=== PATIENT | female | born 1955 | race Caucasian/White ===

== ENCOUNTER 2019-10-01 20:32 | Inpatient (IN) | payer OTHER, MEDICAID ==
[~2019-10-01] VITALS: Ht 162.6 cm; Wt 90.2 kg
[~2019-10-01 20:32] MED LIST: CEPH250C2; FOLI1TAB6; FURO40TA4; GABA100C9; LISI-275; LORA-154; METO25TA5; PANTOPRAZOLE; SULF-169
[2019-10-01] MEDS ORDERED: dilTIAZem 25 MG/5 ML VIAL IV ONE ×2 (20:41→21:15)
[2019-10-01] MEDS ORDERED: SODIUM CHLORIDE 0.9% 1,000 ML IV ONE (21:15)
[2019-10-01] MEDS ORDERED: AMIODARONE HCL 150 MG in D5W 5% 100 ML IV ONE (21:30)
[2019-10-01 21:44] LABS: Hematocrit 50.4 % (36.0-46.0); Mean Corpuscular Hemoglobin 29.4 pg (28.0-32.0); Mean Corpuscular Hgb Conc. 33.8 g/dL (32.0-36.0); Platelet Count (auto) 153 10^3/uL (140-450); Red Blood Cells 5.79 10^6/uL (4.0-5.20); Red Cell Distribution Width 14.7 % (11.8-14.3); White Blood Cell 26.2 10^3/uL (4.4-10.8)
[2019-10-01 21:47] LABS: Albumin 2.8 g/dL (3.4-5.0); Calcium 8.9 mg/dL (8.5-10.1); Magnesium 2.1 mg/dL (1.6-2.6); Potassium 3.9 mmol/L (3.5-5.1)
[2019-10-01 21:48] LABS: Band Neutrophils % (manual) 0; Basophils % (manual) 0 (0.0-2.0); Blast Cells 0; Eosinophils % (manual) 0 (0-7); Metamyelocytes % 0; Myelocytes % 0; Promyelocytes % 0; Reactive Lymphocytes 0
[2019-10-01 21:49] LABS: BUN/Creatinine Ratio 16.2
[2019-10-01 21:54] LABS: Bilirubin, Total 5.1 mg/dL (0.2-1.0); Total Protein 7.2 g/dL (6.4-8.2)
[2019-10-01] MEDS ORDERED: DIGOXIN (250MCG/ML) 2 ML AMPULE ONE (22:26)
[2019-10-01] MEDS ORDERED: HEPARIN DRIP/D5W 100UNITS/ML 250 ML IV SCH (22:27)
[2019-10-01] MEDS ORDERED: ATORVASTATIN 20 MG TAB PO ONE (22:30)
[2019-10-01] MEDS ORDERED: NITROGLYCERIN 2% OINT 1GM PKG TD ONE (22:30)
[2019-10-01] MEDS ORDERED: METOPROLOL TARTRATE 1MG/1ML-5ML VIAL IV ONE (22:30)
[2019-10-01] MEDS ORDERED: HEPARIN SODIUM (PORCINE) 5000 UNITS/ML 1ML VIAL IV ONE (22:30)
[2019-10-01] MEDS ORDERED: DIGOXIN (250MCG/ML) 2 ML AMPULE IV ONE (22:30)
[2019-10-01 22:45] LABS: Lactic Acid w/Reflex 7.3 mmol/L (0.4-2.0)
[2019-10-01 22:51] LABS: Lymphocytes % (manual) 6 (10.0-50.0); Monocytes % (manual) 8 (0-12)
[2019-10-01 23:04] LABS: INR 1.72 (0.9-1.15); Partial Thromboplastin Time 28.7 sec (23.64-32.05)
[2019-10-02] MEDS ORDERED: VANCOMYCIN PER PHARMACY 0 MG IV SCH (00:45)
[2019-10-02] MEDS ORDERED: AMIODARONE HCL 75 MG in D5W 5% 100 ML IV ONE (00:45)
[2019-10-02] MEDS ORDERED: SODIUM CHLORIDE 0.9% 500 ML IV ONE (00:45)
[2019-10-02] MEDS ORDERED: MORPHINE SULF INJ 2 MG/ML SYRINGE 1ML IV PRN (00:45)
[2019-10-02] MEDS ORDERED: NITROGLYCERIN 0.4 MG SL TAB SL PRN (00:45)
[2019-10-02] MEDS ORDERED: ONDANSETRON HCL 4 MG/2 ML VIAL IV PRN (00:45)
[2019-10-02] MEDS ORDERED: dilTIAZem 25 MG/5 ML VIAL IV ONE (00:45)
[2019-10-02] MEDS ORDERED: AMIODARONE 450mg/250ml AE 250 ML IV SCH (00:49)
[2019-10-02] MEDS ORDERED: AMIODARONE HCL (50 MG/ ML) 3 ML VIAL IV ONE (01:31)
[2019-10-02 01:35] LABS: Urine Bacteria FEW /hpf (None Seen); Urine Blood 2+ /uL (Negative); Urine Mucus FEW (None Seen); Urine Specific Gravity 1.028 (1.001-1.035); Urine WBC 1 /hpf (0 - 5)
[2019-10-02 01:56] LABS: Alcohol, Urine < 3.0 mg/dL (0-10); Amphetamine Screen, Urine NEGATIVE (NEGATIVE); Barbiturate Scree,Urine NEGATIVE (NEGATIVE); Benzodiazephine Screen, Urine NEGATIVE (NEGATIVE); Cannabinoid Screen, Urine NEGATIVE (NEGATIVE); Cocaine Screen, Urine NEGATIVE (NEGATIVE); Opiate Scree,Urine NEGATIVE (NEGATIVE); Phencyclidine Screen, Urine NEGATIVE (NEGATIVE)
[2019-10-02] MEDS ORDERED: VANCOMYCIN 1GM/250ML 250 ML IV ONE (02:00)
[2019-10-02] MEDS: SODIUM CHLORIDE 0.9% 1,000 ML IV SCH ×2 (03:40→14:05)
[2019-10-02] MEDS: PIPERACILLIN-TAZOB 3.375GM 100 ML IV SCH ×4 (04:50→18:17)
[2019-10-02] MEDS ORDERED: LACTULOSE 20Gm/30ML SOLN NG SCH (06:00)
[2019-10-02] MEDS ORDERED: LACTULOSE 20Gm/30ML SOLN ONE (07:07)
[2019-10-02] MEDS: LACTULOSE 20Gm/30ML SOLN PR SCH ×3 (07:12→23:35)
[2019-10-02] MEDS: AMIODARONE 450mg/250ml AE 250 ML IV SCH ×2 (07:34→23:35)
[2019-10-02] MEDS: ASPirin 81 mg TAB NG SCH (10:00)
[2019-10-02] MEDS: PANTOPRAZOLE 40 MG/10 ML VIAL INJ IV SCH (10:35)
[2019-10-02] MEDS ORDERED: dilTIAZem 125mg/125ml BAG KIT 125 ML IV SCH (12:15)
[2019-10-02] MEDS ORDERED: METOPROLOL SUCCINATE XL 50 MG TAB PO ONE (12:30)
[2019-10-02] MEDS ORDERED: ENOXAPARIN SOD 100 MG/1 ML SYRINGE SC ONE (13:15)
[2019-10-02 16:21] VITALS: BP 136/88
--- NOTE | 2019-10-02 16:30 | NUR ---
IV REMOVED Right wrist IV removed with clean technique. Site reddened and swollen. Patient tolerated well.
--- NOTE | 2019-10-02 18:58 | NUR ---
COMPLETE LINEN CHANGE Catheter bag changed d/t leaking.
[2019-10-02] MEDS: VANCOMYCIN 1GM/250ML 250 ML IV SCH (20:35)
[2019-10-02] MEDS: ENOXAPARIN SOD 100 MG/1 ML SYRINGE SC SCH (23:36)
[2019-10-02] MEDS: ATORVASTATIN 20 MG TAB NG SCH (23:36)
[2019-10-03] MEDS: SODIUM CHLORIDE 0.9% 1,000 ML IV SCH (03:29)
[2019-10-03] MEDS: PIPERACILLIN-TAZOB 3.375GM 100 ML IV SCH ×4 (06:52→18:30)
[2019-10-03] MEDS: LACTULOSE 20Gm/30ML SOLN PR SCH ×3 (06:52→20:00)
[2019-10-03 08:35] LABS: Basophils # (auto) 0 10 ^3/uL (0-0.2); Basophils % (auto) 0.2 % (0.0-2.0); Eosinophils # (auto) 0 10 ^3/uL (0-0.8); Hematocrit 46.5 % (36.0-46.0); Hemoglobin 15.6 g/dL (12.2-16.2); Lymphocytes # (auto) 1.3 10 ^3/uL (0.4-5.4); Lymphocytes % (auto) 5.3 % (10.0-50.0); Mean Corpuscular Hgb Conc. 33.5 g/dL (32.0-36.0); Mean Corpuscular Volume 89.5 fL (80.0-100.0); Monocytes # (auto) 2.3 10 ^3/uL (0-1.3); Monocytes % (auto) 9.7 % (0.0-12.0); Neutrophils # (auto) 20.1 10 ^3/uL (1.6-8.6); Neutrophils % (auto) 84.8 % (37.0-80.0); Nucleated Red Blood Cells % 0.8 %; Platelet Count (auto) 159 10^3/uL (140-450); Red Cell Distribution Width 15.2 % (11.8-14.3); White Blood Cell 23.7 10^3/uL (4.4-10.8)
[2019-10-03 08:50] LABS: Lactic Acid w/Reflex 2.6 mmol/L (0.4-2.0)
[2019-10-03 08:53] LABS: Potassium 3.2 mmol/L (3.5-5.1)
[2019-10-03 09:04] LABS: Albumin 2.6 g/dL (3.4-5.0); BUN/Creatinine Ratio 21.2; Total Protein 6.5 g/dL (6.4-8.2)
[2019-10-03] MEDS ORDERED: METOPROLOL SUCCINATE XL 50 MG TAB PO SCH ×2 (10:00→12:30)
[2019-10-03] MEDS: ENOXAPARIN SOD 100 MG/1 ML SYRINGE SC SCH ×2 (11:06→21:56)
[2019-10-03] MEDS: PANTOPRAZOLE 40 MG/10 ML VIAL INJ IV SCH (11:06)
[2019-10-03] MEDS: ASPirin 81 mg TAB NG SCH (11:18)
[2019-10-03] MEDS: VANCOMYCIN 1GM/250ML 250 ML IV SCH (12:25)
[2019-10-03] MEDS ORDERED: METOPROLOL TARTRATE 25 MG TAB NG SCH (14:00)
[2019-10-03] MEDS: ESMOLOL HCL-NS 10MG/ML 250 ML IV SCH ×2 (14:50→20:13)
[2019-10-03] MEDS: AMIODARONE 450mg/250ml AE 250 ML IV SCH (15:12)
[2019-10-03] MEDS ORDERED: LACTULOSE 20Gm/30ML SOLN PR SCH (16:00)
[2019-10-03 16:17] LABS: Basophils # (auto) 0 10 ^3/uL (0-0.2); Basophils % (auto) 0.1 % (0.0-2.0); Eosinophils # (auto) 0 10 ^3/uL (0-0.8); Eosinophils % (auto) 0.1 % (0.0-7.0); Hemoglobin 13.8 g/dL (12.2-16.2); Lymphocytes # (auto) 0.7 10 ^3/uL (0.4-5.4); Lymphocytes % (auto) 3.9 % (10.0-50.0); Mean Corpuscular Hemoglobin 29.6 pg (28.0-32.0); Mean Corpuscular Hgb Conc. 32.8 g/dL (32.0-36.0); Monocytes # (auto) 1.4 10 ^3/uL (0-1.3); Monocytes % (auto) 7.8 % (0.0-12.0); Neutrophils # (auto) 16.3 10 ^3/uL (1.6-8.6); Neutrophils % (auto) 88.1 % (37.0-80.0); Nucleated Red Blood Cells % 0.4 %; Platelet Count (auto) 150 10^3/uL (140-450); Red Blood Cells 4.67 10^6/uL (4.0-5.20); Red Cell Distribution Width 15.3 % (11.8-14.3); White Blood Cell 18.5 10^3/uL (4.4-10.8)
[2019-10-03 16:30] LABS: INR 1.54 (0.9-1.15)
[2019-10-03 16:36] LABS: Albumin 2.2 g/dL (3.4-5.0); BUN/Creatinine Ratio 23.3
[2019-10-03 16:39] LABS: Total Protein 5.5 g/dL (6.4-8.2)
[2019-10-03 16:47] LABS: Potassium 2.9 mmol/L (3.5-5.1)
[2019-10-03] MEDS: POTASSIUM CHL 20MEQ/100ML 100 ML IV SCH ×3 (17:32→21:26)
[2019-10-03] MEDS: ATORVASTATIN 20 MG TAB NG SCH (21:55)
[2019-10-03] MEDS: METOPROLOL TARTRATE 25 MG TAB NG SCH (21:56)
[2019-10-03] MEDS: rifAXIMin 550 MG TAB NG SCH (21:56)
[2019-10-04] VITALS (9 sets, daily range): BP systolic 57–108; BP diastolic 26–81
[2019-10-04] MEDS: ESMOLOL HCL-NS 10MG/ML 250 ML IV SCH ×6 (01:20→21:51)
[2019-10-04] MEDS: VANCOMYCIN 1GM/250ML 250 ML IV SCH ×2 (04:21→15:47)
[2019-10-04] MEDS: LACTULOSE 20Gm/30ML SOLN PR SCH ×6 (04:21→20:00)
[2019-10-04] MEDS: PIPERACILLIN-TAZOB 3.375GM 100 ML IV SCH ×3 (05:38→12:53)
[2019-10-04] MEDS: AMIODARONE 450mg/250ml AE 250 ML IV SCH ×2 (05:55→17:56)
[2019-10-04] MEDS ORDERED: SODIUM CHLORIDE 0.9% 1,000 ML IV SCH (06:00)
[2019-10-04] MEDS ORDERED: ETOMIDATE (2MG/ML) 20ML VIAL IV ONE ×2 (06:07→06:15)
[2019-10-04] MEDS ORDERED: SUCCINYLCHOLINE CHLORIDE 20 MG/ML 10ML VIAL IV ONE ×2 (06:08→06:15)
[2019-10-04] MEDS: MIDAZOLAM DRIP 50 mg/50mL 50 ML IV SCH ×4 (07:00→21:00)
[2019-10-04] MEDS: NOREPINEPHRINE 8 MG/250ML KIT 250 ML IV SCH ×3 (09:38→21:00)
[2019-10-04] MEDS: PANTOPRAZOLE 40 MG/10 ML VIAL INJ IV SCH (09:39)
[2019-10-04] MEDS: ASPirin 81 mg TAB NG SCH (09:39)
--- NOTE | 2019-10-04 10:00 | NUR ---
WOUND CARE NOTE: PATIENT NOTED TO BE INTUBATED IN THE ER. PATIENT RECENTLY INTUBATED EARLY THIS AM. PATIENT ADMITTED TO [facility] WITH DIAGNOSIS OF NSTEMI/SEPSIS. CURRENT MADELIN SCORE IS ASSESSED AT 10. PATIENT IS INTUBATED, SEDATED. SHE IS IN ER BED 18, RESTING ON GURNEY. ORDERED SPECIALTY AIR BED AT THIS TIME. PATIENT TO BE PLACED, PENDING DELIVERY BY MADDISON MORENO. PER BEDSIDE NURSE, PATIENT UNDERWENT RECENT BUNIONECTOMY TO THE RIGHT FOOT. INTACT SURGICAL DRESSING NOTED. LEFT PENNY IS NOTED TO HAVE MULTIPLE AREAS WITH ERYTHEMA, ECCHYMOSIS, SCABS. WOUND PHOTOS TAKEN AT THIS TIME. SKIN/WOUND CARE PLAN IMPLEMENTED. RECOMMEND: FIND OUT WHO SURGEON WAS FOR BUNIONECTOMY TO OBTAIN DRESSING CHANGE INSTRUCTIONS, FREQUENT TURN SCHEDULE Q 2HOURS, PRN CONDITION PERMITS, WITH PRESSURE REDISTRIBUTION USING PILLOWS/WEDGES, SPECIALTY AIR BED, ELEVATION OF BLE UP ON PILLOWS FOR EDEMA CONTROL, BID/PRN APPLICATION MOISTURE BARRIER CREAM, OPTIFOAM GENTLE SACRAL DRESSING PREVENTATIVE, DIETARY CONSULT FOR LOW MADELIN/INTUBATION STATUS, SKIN/WOUND CARE PLAN, CONTINUED MONITORING BY WOUND CARE TEAM. Addendum: 10/04/19 at 1514 by Shazia Cordoba RN Amended: Links added.
[2019-10-04] MEDS: rifAXIMin 550 MG TAB NG SCH ×2 (11:17→22:00)
[2019-10-04] MEDS: ENOXAPARIN SOD 100 MG/1 ML SYRINGE SC SCH ×2 (11:18→22:00)
[2019-10-04] MEDS: METOPROLOL TARTRATE 25 MG TAB NG SCH ×2 (11:18→22:00)
[2019-10-04] MEDS ORDERED: DIGOXIN (250MCG/ML) 2 ML AMPULE IV ONE (11:30)
[2019-10-04 11:39] LABS: Albumin 2.5 g/dL (3.4-5.0); Calcium 7.7 mg/dL (8.5-10.1); Potassium 3.7 mmol/L (3.5-5.1)
[2019-10-04 11:45] LABS: BUN/Creatinine Ratio 12.8; Bilirubin, Total 1.8 mg/dL (0.2-1.0); Total Protein 6.5 g/dL (6.4-8.2)
[2019-10-04 13:28] LABS: Hematocrit 51.3 % (36.0-46.0); Hemoglobin 16.4 g/dL (12.2-16.2); Mean Corpuscular Hemoglobin 29.9 pg (28.0-32.0); Mean Corpuscular Volume 93.5 fL (80.0-100.0); Platelet Count (auto) 231 10^3/uL (140-450); Red Blood Cells 5.49 10^6/uL (4.0-5.20); White Blood Cell 20.7 10^3/uL (4.4-10.8)
[2019-10-04 13:33] LABS: Basophils % (manual) 0 (0.0-2.0); Blast Cells 0; Eosinophils % (manual) 0 (0-7); Metamyelocytes % 0; Myelocytes % 0; Promyelocytes % 0; Reactive Lymphocytes 0
[2019-10-04 13:49] LABS: Albumin 2.2 g/dL (3.4-5.0); BUN/Creatinine Ratio 10.2; Bilirubin, Total 1.6 mg/dL (0.2-1.0); Calcium 7.8 mg/dL (8.5-10.1); Magnesium 2.8 mg/dL (1.6-2.6); Potassium 3.5 mmol/L (3.5-5.1)
[2019-10-04 14:02] LABS: Band Neutrophils % (manual) 1; Lymphocytes % (manual) 4 (10.0-50.0); Monocytes % (manual) 8 (0-12)
[2019-10-04] MEDS ORDERED: D5W/SOD CHL 0.45% 1,000 ML IV SCH (15:15)
[2019-10-04 19:30] LABS: BUN/Creatinine Ratio 9.3; Calcium 8.1 mg/dL (8.5-10.1); Potassium 3.4 mmol/L (3.5-5.1)
[2019-10-04] MEDS ORDERED: ACETAMINOPHEN 650 mg PER 20 mL UD GT PRN (20:45)
[2019-10-04] MEDS: ATORVASTATIN 20 MG TAB NG SCH (22:00)
[2019-10-04] MEDS: MEROPENEM 1GM IVPB 100 ML IV SCH (22:00)
[2019-10-04] MEDS: METOPROLOL TARTRATE 1MG/1ML-5ML VIAL IV SCH ×3 (22:22→22:35)
[2019-10-05] VITALS (7 sets, daily range): BP systolic 81–149; BP diastolic 44–72
[2019-10-05] MEDS ORDERED: VASOPRESSIN 20 UNIT/ML ONE (01:03)
[2019-10-05] MEDS: VASOPRESSIN 50 UNITS in D5W 5% 247.5 ML IV SCH (01:11)
[2019-10-05] MEDS: VANCOMYCIN 1GM/250ML 250 ML IV SCH (04:00)
[2019-10-05] MEDS: LACTULOSE 20Gm/30ML SOLN PR SCH ×3 (04:00→08:00)
[2019-10-05] MEDS: EPINEPHrine HCL INJECTION 4 MG in SODIUM CHL 0.9% 250 ML IV SCH (04:50)
[2019-10-05] MEDS ORDERED: EPINEPHrine HCL 250 ML IV ONE (04:57)
[2019-10-05] MEDS: NOREPINEPHRINE 8 MG/250ML KIT 250 ML IV SCH ×2 (06:38→23:59)
[2019-10-05 08:11] LABS: Hemoglobin 17.9 g/dL (12.2-16.2)
[2019-10-05 08:12] LABS: Mean Corpuscular Hemoglobin 29.4 pg (28.0-32.0); Mean Corpuscular Hgb Conc. 30.5 g/dL (32.0-36.0); Mean Corpuscular Volume 96.5 fL (80.0-100.0); Platelet Count (auto) 213 10^3/uL (140-450); Red Blood Cells 6.09 10^6/uL (4.0-5.20); Red Cell Distribution Width 17.6 % (11.8-14.3); White Blood Cell 28.8 10^3/uL (4.4-10.8)
[2019-10-05 08:13] LABS: Band Neutrophils % (manual) 0; Basophils % (manual) 0 (0.0-2.0); Blast Cells 0; Eosinophils % (manual) 0 (0-7); Hematocrit 58.8 % (36.0-46.0); Metamyelocytes % 0; Myelocytes % 0; Promyelocytes % 0; Reactive Lymphocytes 0
[2019-10-05 08:35] LABS: Lymphocytes % (manual) 3 (10.0-50.0); Monocytes % (manual) 4 (0-12)
[2019-10-05] MEDS ORDERED: SODIUM CHLORIDE 0.9% 1,000 ML IV ONE ×2 (08:54)
[2019-10-05] MEDS ORDERED: SODIUM BICARBONATE 50ML VIAL 100 ML in SOD CHL 0.45% 1,000 ML IV ONE (09:00)
[2019-10-05] MEDS: AMIODARONE 450mg/250ml AE 250 ML IV SCH ×2 (09:09→23:00)
[2019-10-05] MEDS: METOPROLOL TARTRATE 25 MG TAB NG SCH (10:00)
[2019-10-05] MEDS: MEROPENEM 1GM IVPB 100 ML IV SCH (10:00)
[2019-10-05] MEDS: DIGOXIN (250MCG/ML) 2 ML AMPULE IV SCH (10:13)
[2019-10-05] MEDS: PANTOPRAZOLE 40 MG/10 ML VIAL INJ IV SCH (10:13)
[2019-10-05] MEDS: ASPirin 81 mg TAB NG SCH (10:14)
[2019-10-05] MEDS: ENOXAPARIN SOD 100 MG/1 ML SYRINGE SC SCH ×2 (10:14→21:54)
[2019-10-05] MEDS: rifAXIMin 550 MG TAB NG SCH ×2 (10:14→21:54)
[2019-10-05] MEDS: LINEZOLID 600MG/300ML 300 ML IV SCH ×2 (11:12→22:00)
[2019-10-05 11:20] LABS: Albumin 1.8 g/dL (3.4-5.0); BUN/Creatinine Ratio 7.1; Calcium 7.3 mg/dL (8.5-10.1)
[2019-10-05 11:23] LABS: Bilirubin, Total 1.5 mg/dL (0.2-1.0); Total Protein 5.5 g/dL (6.4-8.2)
[2019-10-05 11:31] LABS: Potassium 2.7 mmol/L (3.5-5.1)
[2019-10-05] MEDS ORDERED: DEXTROSE (50%) 50ML SYRG IV PRN (11:45)
[2019-10-05] MEDS ORDERED: POTASSIUM CHLORIDE 40 MEQ, LIDOCAINE 1% (LOCAL ANESTH.) 4 ML in SODIUM CHL 0.9% 100 ML IV ONE (11:45)
[2019-10-05] MEDS: InsuLIN REG 1unit/0.01ml Soln (100units/ml) SC SCH ×2 (12:43→17:35)
[2019-10-05] MEDS: ACCU-CHEK COMFORT CURVE STRIP VI SCH ×2 (12:43→17:35)
--- NOTE | 2019-10-05 16:40 | NUR ---
Nutrition Assessment Notes Please refer to link for full assessment notes. Est Energy needs: 7148-4407 kcals (17-20 kcal/kgBW) Est Protein needs: 49-61 gms/day (0.6-0.75 gm/kgBW) d/t pt with Stg 4 CKF Will continue to monitor and reassess prn. Addendum: 10/05/19 at [address] Amended: Links added.
[2019-10-05] MEDS ORDERED: EPINEPHrine HCL 1 MG/10 ML SYRG ONE (19:04)
[2019-10-05] MEDS: MEROPENEM 500MG IVPB 50 ML IV SCH (21:53)
[2019-10-05] MEDS: ATORVASTATIN 20 MG TAB NG SCH (21:54)
[2019-10-05] MEDS: LACTULOSE 20Gm/30ML SOLN NG SCH (22:00)
[2019-10-05] MEDS: SOD CHL 0.45% 1,000 ML IV SCH (23:00)
[2019-10-05] MEDS: MIDAZOLAM DRIP 50 mg/50mL 50 ML IV SCH (23:00)
[2019-10-05] MEDS: ESMOLOL HCL-NS 10MG/ML 250 ML IV SCH (23:58)
[2019-10-06] VITALS (79 sets, daily range): BP systolic 59–180; BP diastolic 19–102
[2019-10-06] MEDS: VASOPRESSIN 50 UNITS in D5W 5% 247.5 ML IV SCH (01:00)
[2019-10-06] MEDS: EPINEPHrine HCL INJECTION 4 MG in SODIUM CHL 0.9% 250 ML IV SCH (04:45)
[2019-10-06 05:11] LABS: Red Cell Distribution Width 16.8 % (11.8-14.3)
[2019-10-06 05:14] LABS: Hematocrit 52.1 % (36.0-46.0); Hemoglobin 16.7 g/dL (12.2-16.2); Mean Corpuscular Hemoglobin 29.6 pg (28.0-32.0); Mean Corpuscular Volume 92.5 fL (80.0-100.0); Platelet Count (auto) 154 10^3/uL (140-450); Red Blood Cells 5.63 10^6/uL (4.0-5.20)
[2019-10-06 05:21] LABS: White Blood Cell 39.9 10^3/uL (4.4-10.8)
[2019-10-06 05:24] LABS: Band Neutrophils % (manual) 0; Basophils % (manual) 0 (0.0-2.0); Blast Cells 0; Eosinophils % (manual) 0 (0-7); Metamyelocytes % 0; Myelocytes % 0; Promyelocytes % 0; Reactive Lymphocytes 0
--- NOTE | 2019-10-06 05:55 | NUR ---
Respiratory note: PT TRANSPORTED TO ICU, VENTILATED AND OXYGENATED VIA AMBU BAG BY RT. PT ARRIVED IN ICU AND PLACED BACK ON DR ORDERED VENT SETTINGS ON VENT #V17, PLUGGED INTO A RED OUTLET AND PROPER O2 SOURCE. AMBU BAG PLACED AT BEDSIDE.RECEIVING RN AT BEDSIDE. TRANSPORT WENT WITHOUT INCIDENT.
[2019-10-06] MEDS: SOD CHL 0.45% 1,000 ML IV SCH (06:00)
--- NOTE | 2019-10-06 06:00 | NUR ---
PATIENT ARRIVED TO ICU FROM ER VIA GURNEY, MANUALLY VENTILATED, TRANSFER TO ICU BED AND CONNECTED TO VENT AND PATIENT LIAISON. PT ASSESSED, SEDATED ON VERSED AT 5MG/HR.
[2019-10-06] MEDS: InsuLIN REG 1unit/0.01ml Soln (100units/ml) SC SCH ×5 (06:03→23:50)
[2019-10-06] MEDS: ACCU-CHEK COMFORT CURVE STRIP VI SCH ×5 (06:03→23:46)
[2019-10-06 07:21] LABS: Lymphocytes % (manual) 5 (10.0-50.0); Monocytes % (manual) 6 (0-12)
--- NOTE | 2019-10-06 07:30 | NUR ---
PATIENT IS IN AFRVR OF 161/ MIN.NOT ON ESMOLOL DURING THE ADMISSION TO ICU, ONLY ON AMIODARONE AT 0.5. NEW BAG OF ESMOLOL HUNG AT THE RATE IN ER , 75MCG/KG/MIN. SOON NOT ABLE TO GET A BP, LEVOPHED GTT RESTARTED AND TITRATED UP. STILL UNABLE TO OBTAIN A SATISFACTORY BP, VASOPRESSIN ADDED AND TITRATED NEEDED. REPORT GIVEN TO DAY RN BELEN WHO ASSUME CARE OF THE PATIENT
--- NOTE | 2019-10-06 08:00 | NUR ---
Q2H TURNING PT NOT STABLE TO TURN Q 2 HRS AT THIS TIME. HIGH HR, LOW B/P. WILL CONTINUE TO MONITOR. Signed: 10/06/19 at 1909 by CHRISTIANO REED <Co-Signature Required> Co-Signed: 10/06/19 at 1909 by Dina Maguire RN
[2019-10-06] MEDS ORDERED: SODIUM BICARBONATE 8.4 % INJ 50ML VIAL IV ONE ×2 (08:30→08:31)
[2019-10-06] MEDS ORDERED: AMIODARONE HCL 150 MG in D5W 5% 100 ML IV ONE (08:30)
[2019-10-06] MEDS ORDERED: SOD CHL 0.45% 1,000 ML IV ONE (08:30)
--- NOTE | 2019-10-06 08:30 | NUR ---
VISITS AND EXAMINES PATIENT - ORDER RECEIVED.
[2019-10-06] MEDS ORDERED: POTASSIUM CHL 20MEQ/100ML 200 ML IV ONE (08:31)
[2019-10-06] MEDS ORDERED: AMIODARONE 450mg/250ml AE 250 ML IV SCH (08:34)
[2019-10-06] MEDS: POTASSIUM CHL 20MEQ/100ML 100 ML IV SCH ×2 (08:39→12:06)
[2019-10-06] MEDS: AMIODARONE 450mg/250ml AE 250 ML IV SCH ×6 (09:00→22:30)
[2019-10-06] MEDS: SODIUM BICARB 50ML SYR 100 ML in D5W 5% 1,000 ML IV SCH ×2 (09:06→16:35)
--- NOTE | 2019-10-06 09:15 | NUR ---
CALL PLACED TO DR CLANCY RE: PATIENT HR, BP AND AMIO GTT.
[2019-10-06 09:30] LABS: INR 2.4 (0.9-1.15); Partial Thromboplastin Time 67.9 sec (23.64-32.05)
[2019-10-06] MEDS: rifAXIMin 550 MG TAB NG SCH ×2 (09:39→22:03)
[2019-10-06] MEDS: PANTOPRAZOLE 40 MG/10 ML VIAL INJ IV SCH (09:40)
[2019-10-06] MEDS: LACTULOSE 20Gm/30ML SOLN NG SCH (09:40)
[2019-10-06] MEDS: DIGOXIN (250MCG/ML) 2 ML AMPULE IV SCH (09:43)
--- NOTE | 2019-10-06 09:45 | NUR ---
DR NGUYEN PHONES - GIVEN UPDATE ON PATIENT CONDITION AND POC - ORDERS RECEIVED.
[2019-10-06] MEDS: ASPirin 81 mg TAB NG SCH (09:51)
[2019-10-06] MEDS: ENOXAPARIN SOD 100 MG/1 ML SYRINGE SC SCH (09:51)
--- NOTE | 2019-10-06 09:55 | NUR ---
CALL PLACED TO RE: ELEVATED COAG VALUES.
[2019-10-06] MEDS: LINEZOLID 600MG/300ML 300 ML IV SCH ×2 (09:59→22:03)
[2019-10-06] MEDS: FREE WATER GT SCH ×4 (10:00→22:03)
--- NOTE | 2019-10-06 10:15 | NUR ---
NG CONNECTED TO LIWS - 150ML LIGHT RED DRNG NOTED.
[2019-10-06 10:30] LABS: Protein, Urine 61.4 mg/dL (0.0-11.9)
--- NOTE | 2019-10-06 11:00 | NUR ---
DR CROSS VISITS AND EXAMINES PATIENT - ORDERS RECEIVED.
[2019-10-06] MEDS ORDERED: PHYTONADIONE (VIT K)10 MG/ML 1ML VIAL IV ONE (11:15)
--- NOTE | 2019-10-06 11:30 | NUR ---
Giselle Ocasio visits and examines patient 1130 - orders received.
[2019-10-06] MEDS: MEROPENEM 500MG IVPB 50 ML IV SCH (12:45)
--- NOTE | 2019-10-06 15:00 | NUR ---
RT NOTIFIED DR KITCHEN OF REPEAT ABG'S - NO CHANGES ORDERED.
--- NOTE | 2019-10-06 15:10 | NUR ---
DR CLANCY RETURNS CALL - INFORMED OF PATIENT'S BP AND HR THIS AM AND CURRENT AMIO GTT AT 1MG/HR - STATES GTT IS OKAY AND WILL EVALUATE PATIENT WHEN HE VISITS.
[2019-10-06] MEDS: MIDAZOLAM DRIP 50 mg/50mL 50 ML IV SCH (17:17)
--- NOTE | 2019-10-06 18:00 | NUR ---
FEMORAL TLC DRESSING SMALL AMOUNT OF MEDIUM RED DRAINAGE NOTED ON DRESSING. WILL CONTINUE TO MONITOR. Signed: 10/06/19 at 1910 by CHRISTIANO REED <Co-Signature Required> Co-Signed: 10/06/19 at 1910 by Dina Maguire RN
[2019-10-06] MEDS ORDERED: ENOXAPARIN SOD 100 MG/1 ML SYRINGE SC ONE (18:38)
--- NOTE | 2019-10-06 19:30 | NUR ---
REPORT REPORT RECEIVED FROM PHUONG CANELA
--- NOTE | 2019-10-06 19:45 | NUR ---
OPEN NOTES PATIENT RECEIVED SEDATED ON IV VERSED AT 3MG/HR. HYPOACTIVE COUGH AND GAG NOTED. PUPILS BOTH REACTIVE TO LIGHT. RECTAL TEMP 100.6F - WILL DO COOLING MEASURES. INTUBATED AND VENTILATED ON AC MODE, FIO2 30% - SUCTIONED. ORAL CARE DONE PATIENT IS ON ATRIAL FIBRILLATION HR 100-130/MIN, BP SUPPORTED WITH IV LEVOPHED AT 16MCG/MIN- WILL TITRATE ACCORDINGLY OGT CLAMPED - CONNECTED TO LIS ORANGY OUTPUT CAME OUT ABDOMEN DISTENDED BUT SOFT, HYPOACTIVE BOWEL SOUNDS TAYLOR CATHETER DRAINING LIGHT KAREEM COLORED URINE RIGHT FOOT NOTED WITH DRESSING INTACT. IV LINES DRESSING INTACT, LINES SECURED. FULL ASSESSMENT DONE - REFER INTERVENTIONS
--- NOTE | 2019-10-06 20:00 | NUR ---
ICE PACKS APPLIED FOR TEMP 100.8F
--- NOTE | 2019-10-06 22:00 | NUR ---
TEMP RE-ASSESS TEMP RECTALLY 100.4F TRENDING DOWN WILL CONTINUE TO MONITOR
[2019-10-06] MEDS: ATORVASTATIN 20 MG TAB NG SCH (22:03)
[2019-10-06] MEDS: NOREPINEPHRINE 8 MG/250ML KIT 250 ML IV SCH (22:11)
--- NOTE | 2019-10-06 22:20 | NUR ---
Family updated on pt status SISTER of SEKOU LUTHER called. Correct password given. updated on patient's status and condition. All questions and concerns addressed. verbalized understanding.
[2019-10-07] VITALS (97 sets, daily range): BP systolic 83–123; BP diastolic 33–91
[2019-10-07] MEDS: MEROPENEM 500MG IVPB 50 ML IV SCH ×3 (00:19→21:36)
[2019-10-07] MEDS: SODIUM BICARB 50ML SYR 100 ML in D5W 5% 1,000 ML IV SCH ×2 (00:20→08:00)
[2019-10-07] MEDS: VASOPRESSIN 50 UNITS in D5W 5% 247.5 ML IV SCH (00:57)
[2019-10-07] MEDS: FREE WATER GT SCH ×3 (02:00→09:45)
--- NOTE | 2019-10-07 02:00 | NUR ---
OGT OUTPUT OGT OUTPUT =150ML YELLOWISH ORANGE HELD FREE WATER
[2019-10-07] MEDS: AMIODARONE 450mg/250ml AE 250 ML IV SCH ×4 (03:32→18:31)
[2019-10-07 04:39] LABS: Hematocrit 47.2 % (36.0-46.0); Hemoglobin 15.3 g/dL (12.2-16.2); Mean Corpuscular Hemoglobin 29.3 pg (28.0-32.0); Mean Corpuscular Hgb Conc. 32.4 g/dL (32.0-36.0); Mean Corpuscular Volume 90.5 fL (80.0-100.0); Platelet Count (auto) 103 10^3/uL (140-450); Red Blood Cells 5.22 10^6/uL (4.0-5.20); Red Cell Distribution Width 16.2 % (11.8-14.3)
[2019-10-07] MEDS: EPINEPHrine HCL INJECTION 4 MG in SODIUM CHL 0.9% 250 ML IV SCH (04:45)
[2019-10-07 04:51] LABS: White Blood Cell 30.6 10^3/uL (4.4-10.8)
[2019-10-07 04:53] LABS: Basophils % (manual) 0 (0.0-2.0); Blast Cells 0; Eosinophils % (manual) 0 (0-7); Metamyelocytes % 0; Myelocytes % 0; Promyelocytes % 0; Reactive Lymphocytes 0
[2019-10-07 04:54] LABS: INR 1.63 (0.9-1.15)
[2019-10-07 04:56] LABS: Albumin 1.5 g/dL (3.4-5.0); BUN/Creatinine Ratio 10.2; Calcium 6.4 mg/dL (8.5-10.1); Potassium 3.3 mmol/L (3.5-5.1)
[2019-10-07 04:59] LABS: Bilirubin, Total 3.4 mg/dL (0.2-1.0); Total Protein 4.7 g/dL (6.4-8.2)
[2019-10-07] MEDS: ACCU-CHEK COMFORT CURVE STRIP VI SCH ×3 (05:25→18:00)
[2019-10-07] MEDS: InsuLIN REG 1unit/0.01ml Soln (100units/ml) SC SCH ×3 (05:28→18:00)
[2019-10-07 06:17] LABS: Band Neutrophils % (manual) 14; Lymphocytes % (manual) 5 (10.0-50.0); Monocytes % (manual) 4 (0-12)
[2019-10-07] MEDS ORDERED: POTASSIUM CHL 20MEQ/100ML 100 ML IV ONE (06:30)
[2019-10-07] MEDS ORDERED: CALCIUM GLUC 4.65meq/50ml D5AE 50 ML IV ONE (08:30)
[2019-10-07] MEDS ORDERED: POTASSIUM CHL 20MEQ/100ML 100 ML IV SCH (08:30)
--- NOTE | 2019-10-07 08:30 | NUR ---
VISITS AND EXAMINES PATIENT - NO NEW ORDERS RECEIVED.
[2019-10-07] MEDS: ALBUMIN 25% 100 ML IV SCH ×2 (09:30→17:19)
[2019-10-07] MEDS: PANTOPRAZOLE 40 MG/10 ML VIAL INJ IV SCH (09:44)
[2019-10-07] MEDS: rifAXIMin 550 MG TAB NG SCH ×2 (09:44→21:36)
[2019-10-07] MEDS: ASPirin 81 mg TAB NG SCH (09:44)
[2019-10-07] MEDS: DIGOXIN (250MCG/ML) 2 ML AMPULE IV SCH (09:45)
[2019-10-07] MEDS: MIDAZOLAM DRIP 50 mg/50mL 50 ML IV SCH (10:58)
[2019-10-07] MEDS ORDERED: PHYTONADIONE (VIT K)10 MG/ML 1ML VIAL IV ONE (11:00)
--- NOTE | 2019-10-07 11:00 | NUR ---
DR LAUGHLIN AND DR CROSS VISIT AND EXAMINES PATIENT - ORDERS RECEIVED.
[2019-10-07] MEDS: LINEZOLID 600MG/300ML 300 ML IV SCH (12:00)
--- NOTE | 2019-10-07 12:26 | NUR ---
Nutrition Followup Notes Wt: 85.3 kg Pt intubated sedated currently NPO with no new diet order per RN. Est Energy needs: 1332-0208 kcals (17-20 kcal/kgBW), Est Protein needs: 49-61 gms/day (0.6-0.75 gm/kgBW) d/t pt with Stg 4 CKF. Will continue to monitor and reassess prn. LABS: BUN 41 H, CREAT 4.01 H, CA 6.4 L, ANGEL 3.4 L, ALB 1.5 L, GLU 250 H GI: Pt has no BM reported with gastric drainage of 500 ml yesterday per RN doc. BS: 11 high risk Refer to wound assessment report for full details. PES: 1) Increased nutrient needs aeb pt sedated, intubated, NPO r/t pt with no PO intake 2) Obesity aeb 150% IBW and BMI of 30.9 kg/m2 r/t energy intake in excess of energy needs 3) Altered nutrition related lab values aeb elev RFTs. low GFR, hyperglycemia, hypocalcemia, severe hypoalbuminemia r/t current/chronic medical condition Comments 1) 1) Continue to closely monitor pt NPO status. 2) Consider EN support with Osmolite @ 55 ml/hr per MD approval 4) Refer pt to RD for nutrition education upon D/C. 5) Continue current plan of care
--- NOTE | 2019-10-07 14:05 | NUR ---
assessment Patient is a 64 year old female who is in ICU on a vent. Per patients sister Elisa prior to admission patient lived home with her and family and was independent. Per Elisa patient has a fww, cane, wheelchair and knee scooter for home use. Per Elisa patient only uses the knee scooter. Elisa informed me patients PCP is Dr Garcia at [facility]. Per Elisa she found patient unresponsive last and called 911. Patient was admitted to ICU and intubated. I informed Elisa patients post discharge needs to be determined after extubation and prior to discharge. Elisa verbalized understanding. Addendum: 10/07/19 at 1420 by Tanesha URIOSTEGUI Amended: Links added.
--- NOTE | 2019-10-07 15:15 | NUR ---
PATIENT'S SISTER PHONES - UPDATED ON PATIENT CONDITION - VERBALIZES UNDERSTANDING.
--- NOTE | 2019-10-07 16:45 | NUR ---
DR KITCHEN VISITS AND EXAMINES PATIENT - ORDERS RECEIVED.
--- NOTE | 2019-10-07 18:30 | NUR ---
ICE PACKS APPLIED TO BILAT GROIN AND AXILLA FOR ELEVATED TEMP.
[2019-10-07] MEDS: NOREPINEPHRINE 8 MG/250ML KIT 250 ML IV SCH (18:31)
[2019-10-07] MEDS: DexMEDEtomidine 400 MCG in D5W 5% 96 ML IV SCH (21:32)
[2019-10-07] MEDS: METOPROLOL TARTRATE 1MG/1ML-5ML VIAL IV SCH (21:37)
[2019-10-08] VITALS (93 sets, daily range): BP systolic 51–163; BP diastolic 33–93
[2019-10-08] MEDS: InsuLIN REG 1unit/0.01ml Soln (100units/ml) SC SCH ×5 (00:15→23:54)
[2019-10-08] MEDS: ACCU-CHEK COMFORT CURVE STRIP VI SCH ×4 (00:15→18:24)
[2019-10-08] MEDS: ALBUMIN 25% 100 ML IV SCH ×3 (00:20→17:59)
[2019-10-08] MEDS: EPINEPHrine HCL INJECTION 4 MG in SODIUM CHL 0.9% 250 ML IV SCH ×2 (00:36→23:22)
[2019-10-08] MEDS: VASOPRESSIN 50 UNITS in D5W 5% 247.5 ML IV SCH ×2 (00:36→13:45)
[2019-10-08] MEDS: AMIODARONE 450mg/250ml AE 250 ML IV SCH ×3 (02:09→18:16)
[2019-10-08] MEDS: NOREPINEPHRINE 8 MG/250ML KIT 250 ML IV SCH ×4 (02:09→23:24)
[2019-10-08] MEDS: MIDAZOLAM DRIP 50 mg/50mL 50 ML IV SCH ×3 (02:10→23:24)
[2019-10-08 04:12] LABS: Basophils # (auto) 0.1 10 ^3/uL (0-0.2); Basophils % (auto) 0.3 % (0.0-2.0); Eosinophils # (auto) 0 10 ^3/uL (0-0.8); Eosinophils % (auto) 0.2 % (0.0-7.0); Hematocrit 44.6 % (36.0-46.0); Hemoglobin 13.6 g/dL (12.2-16.2); Lymphocytes # (auto) 0.9 10 ^3/uL (0.4-5.4); Lymphocytes % (auto) 4.3 % (10.0-50.0); Mean Corpuscular Hgb Conc. 30.5 g/dL (32.0-36.0); Mean Corpuscular Volume 98.1 fL (80.0-100.0); Monocytes # (auto) 0.9 10 ^3/uL (0-1.3); Monocytes % (auto) 4.4 % (0.0-12.0); Neutrophils % (auto) 90.8 % (37.0-80.0); Nucleated Red Blood Cells % 1.8 %; Platelet Count (auto) 79 10^3/uL (140-450); Red Blood Cells 4.55 10^6/uL (4.0-5.20); Red Cell Distribution Width 17.2 % (11.8-14.3); White Blood Cell 20.9 10^3/uL (4.4-10.8)
[2019-10-08 04:23] LABS: Potassium 3.6 mmol/L (3.5-5.1)
[2019-10-08 04:30] LABS: Albumin 3.1 g/dL (3.4-5.0); BUN/Creatinine Ratio 14.5; Bilirubin, Total 5.2 mg/dL (0.2-1.0); Calcium 7.4 mg/dL (8.5-10.1); Total Protein 5.9 g/dL (6.4-8.2)
[2019-10-08 05:21] LABS: INR 1.25 (0.9-1.15)
--- NOTE | 2019-10-08 06:30 | NUR ---
V TACH HAD 15 MIN OF VTACH WITH PULSE. HUMAN RESOURCE INTERNSHIP ELIS NOTIFIED. MG LEVEL ADDED TO AM LABS
--- NOTE | 2019-10-08 07:58 | NUR ---
Respiratory note: LM FOR DR BLUE TO RETURN MY CALL REGARDING CRITICAL ABG RESULTS. RN MADE AWARE.
--- NOTE | 2019-10-08 08:40 | NUR ---
VISITS AND EXAMINES PATIENT - NO NEW ORDERS RECEIVED.
--- NOTE | 2019-10-08 09:31 | NUR ---
PAGE PLACED TO DR KITCHEN RE: PATIENT'S CRITICAL ABG'S
--- NOTE | 2019-10-08 09:41 | NUR ---
DR CROSS VISITS AND EXAMINES PATIENT - ORDERS RECEIVED.
[2019-10-08] MEDS ORDERED: ENOXAPARIN SOD 80 MG/0.8ML SYRINGE SC SCH (10:00)
--- NOTE | 2019-10-08 10:10 | NUR ---
PLACED ANOTHER CALL TO DR KITCHEN RE: CRITICAL ABGS' - RETURNED CALL AND ORDERS RECEIVED.
--- NOTE | 2019-10-08 10:10 | NUR ---
Respiratory note: DR BLUE CALLED AND GAVE ORDER TO DECREASE PT RR FROM 24, TO 14. NO ABG ORDERED PER DR BLUE. RN AWARE. WILL CONTINUE TO MONITOR PT.
[2019-10-08] MEDS: PANTOPRAZOLE 40 MG/10 ML VIAL INJ IV SCH (11:18)
[2019-10-08] MEDS: rifAXIMin 550 MG TAB NG SCH ×2 (11:18→21:56)
[2019-10-08] MEDS: DIGOXIN (250MCG/ML) 2 ML AMPULE IV SCH (11:18)
[2019-10-08] MEDS: ASPirin 81 mg TAB NG SCH (11:19)
[2019-10-08] MEDS: MEROPENEM 500MG IVPB 50 ML IV SCH ×2 (11:19→21:56)
[2019-10-08] MEDS ORDERED: FOLIC ACID 1 MG, MULTIPLE VITAMIN 10 ML, MAGNESIUM SULF SDV 50% 8 MEQ, THIAMINE INJ 100... INJ ONE ×5 (12:00)
--- NOTE | 2019-10-08 12:28 | NUR ---
DR LAUGHLIN VISITS AND EXAMINES PATIENT - ORDERS RECEIVED.
[2019-10-08] MEDS ORDERED: CLINIMIX PER PHARMACY 0 ML IV SCH (12:30)
--- NOTE | 2019-10-08 13:12 | NUR ---
Respiratory note: LM FOR DR BLUE TO RETURN MY CALL REGARDING PT CRITICAL ABG VALUES. RN MADE AWARE. WILL CONTINUE TO MONITOR PT.
--- NOTE | 2019-10-08 13:38 | NUR ---
PATIENT IN SUSTAINED VT RHYTHM HR 144, BP 51/34, BILAT RADIAL PULSES PALPABLE, APICAL PULSE AUSCULTATED - LEVOPHED INCREASED PER PROTOCOL. DR LAUGHLIN AND DR ASTON AVILA. SEE FLOW SHEET FOR VS.
[2019-10-08] MEDS ORDERED: VASOPRESSIN 20 UNIT/ML ONE (13:42)
--- NOTE | 2019-10-08 13:43 | NUR ---
VASOPRESSIN STARTED PER PROTOCOL - SEE IV SPREAD SHEET, SEE VS FLOW SHEET FOR HR AND BP.
--- NOTE | 2019-10-08 13:45 | NUR ---
DR CLANCY AT BEDSIDE - PATIENT CARDIOVERTED X 3 WITH RETURN OF HEART RHYTHM TO ATRIAL FIB RATE 109, BP 119/76
[2019-10-08] MEDS ORDERED: POTASSIUM CHL 20MEQ/100ML 0 ML IV ONE (13:52)
[2019-10-08] MEDS ORDERED: MAGNESIUM SULFATE 1GM/100ML 0 ML IV ONE (13:52)
[2019-10-08] MEDS ORDERED: MAGNESIUM SULFATE 1GM/100ML 100 ML IV ONE (14:15)
--- NOTE | 2019-10-08 14:15 | NUR ---
DR LAUGHLIN NOTIFIED OF PATIENT'S CONDITION RE: VT EPISODE AND NEW ORDERS - ORDER RECEIVED.
[2019-10-08] MEDS: POTASSIUM CHL 20MEQ/100ML 100 ML IV SCH ×2 (14:50→16:37)
--- NOTE | 2019-10-08 14:57 | NUR ---
PATIENT AGAIN IN VT RHYTHM - DR CLANCY NOTIFIED - ORDERS RECEIVED.
[2019-10-08] MEDS ORDERED: LIDOCAINE 50MG/5ML INJ 5ML SYRINGE IV ONE (15:00)
[2019-10-08] MEDS ORDERED: LIDOCAINE 4MG/ML IV SOLN 500 ML IV SCH (15:00)
[2019-10-08] MEDS ORDERED: LIDOCAINE 4MG/ML IV SOLN 500 ML IV ONE (15:04)
--- NOTE | 2019-10-08 15:10 | NUR ---
PATIENT NOW IN ATRIAL FIBRILLATION AGAIN AFTER LIDOCAINE GTT STARTED PER DR CLANCY'S ORDER. BP 140/77
[2019-10-08] MEDS ORDERED: PROPOFOL 100 ML IV SCH (15:39)
[2019-10-08] MEDS ORDERED: fentaNYL Drip 2500mCg/250mlNS 250 ML IV SCH (15:39)
[2019-10-08] MEDS ORDERED: fentaNYL Drip 2500mCg/250mlNS 250 ML IV ONE (15:55)
[2019-10-08] MEDS ORDERED: SODIUM PHOSP 20MEQ(15MMOL) IN NS 100 ML IV ONE (16:00)
--- NOTE | 2019-10-08 16:00 | NUR ---
Respiratory note: UNABLE TO PLACE PT ON CPAP TRIAL DUE TO INCREASED RR 45, AND PT IN V-TACH. RN, AT BEDSIDE. DR BLUE AWARE OF PT STATUS.
[2019-10-08] MEDS: METOCLOPRAMIDE HCL 5MG/ml INJ 2ml VIAL IV SCH ×2 (16:33→21:55)
--- NOTE | 2019-10-08 17:40 | NUR ---
PATIENT DESATURATED TO 75-80 SAO2, INCREASED FIO2 TO 100% VIA MANUAL BUTTON ON VENTILATOR - PAGED RT TO ROOM. DR WILCOX MADE AWARE OF DESATURATION. Addendum: 10/08/19 at 2302 by Dina Maguire RN ERROR - INCORRECT CHARTING TIME - SHOULD BE 1939
--- NOTE | 2019-10-08 17:40 | NUR ---
DR KITCHEN VISITS AND EXAMINES PATIENT - ORDERS RECEIVED.
[2019-10-08] MEDS: DexMEDEtomidine 400 MCG in D5W 5% 96 ML IV SCH (17:46)
[2019-10-08] MEDS ORDERED: ALBUMIN 25% 100 ML IV ONE (17:57)
--- NOTE | 2019-10-08 19:30 | NUR ---
OPENING NOTE: INTUBATED AND SEDATED. GROSSLY UNRESPONSIVE. AFIB/NSR, HR 60-70s. SBP 90-100s. 7.5 ETT, 22 AT THE LIP. LS COARSE/CRACKLES THROUGHOUT AND DIMINISHED AT BASES. RR IN 20s. SpO2 80s. ABD LARGE BUT SOFT. HYPOACTIVE BS. +FLATUS AND STOOL VIA FLEXISEAL. OGT +AIR BOLUS, BILIOUS OUTPUT. TAYLOR PATENT AND INTACT DRAINING KAREEM URINE. SKIN GROSSLY INTACT, SEE FLOWSHEET FOR ASSESSMENT. RIGHT FEMORAL TLC, OOZING AT SITE, BUT PATENT WITH BLOOD RETURN. ALIYAH MIDLINE, CDI, AND PATENT WITH BLOOD RETURN. REINFORCED POC. MAINTAINED PATIENT SAFETY: BED LOCKED AND IN THE LOWEST POSITION, FREQUENT VISUAL CHECKS. WILL CONT CARE.
--- NOTE | 2019-10-08 19:42 | NUR ---
PAGED TO ROOM FOR SUSTAINED DESATURATION MAINTAINED AROUND LOW TO MID 80's. INCREASED FIO2 TO 100% AT THIS TIME. SPO2 INCREASED TO 89-90%. NO CHANGE WITH VARIOUS PULSE OX PROBE SITES. ABG DRAWN. RESULTS REPORTED TO DR. BLUE. PEEP INCREASED TO 10 AT THIS TIME. PHUONG RENDON IS AWARE.
--- NOTE | 2019-10-08 19:45 | NUR ---
COMPRESSION MOLDING MACHINE SETTER SPOKE TO PATIENT'S SISTER RE:PATIENT CONDITION THIS SHIFT IN REGARDS TO VT AND LOW BP, NEW MEDS STARTED - VERBALIZED UNDERSTANDING.
[2019-10-08] MEDS ORDERED: CLINIMIX PER PHARMACY IV NR (20:00)
--- NOTE | 2019-10-08 20:44 | NUR ---
LEFT MESSAGE FOR DR. BLUE REGARDING ABG RESULTS.
--- NOTE | 2019-10-08 20:58 | NUR ---
PAGED DR. NGUYEN - REGARDING ABG RESULTS
--- NOTE | 2019-10-08 21:02 | NUR ---
SPOKE WITH DR. NGUYEN - MADE AWARE OF ABG AND STATUS: 1/2NS WITH 2 AMPS OF BICARB AT 100 ML/HRS AND STOP BANANA BAG. ORDERS READ BACK AND VERIFIED
[2019-10-08] MEDS ORDERED: SODIUM BICARBONATE 8.4% INJ 50ML SYRINGE ONE (21:06)
[2019-10-08] MEDS ORDERED: SODIUM BICARBONATE 50ML VIAL 100 ML in SOD CHL 0.45% 1,000 ML IV SCH (21:15)
--- NOTE | 2019-10-08 21:29 | NUR ---
SPOKE WITH BORA, PATIENT'S AND FAMILY: WANTS EVERYTHING DONE MEDICALLY POSSIBLE BUT DOES NOT WANT ANY HEROICS IF PATIENT WERE TO GO INTO RESPIRATORY OR CARDIAC ARREST Addendum: 10/09/19 at 0336 by Juli Orta RN RN PATIENT'S SISTER NOT .
--- NOTE | 2019-10-08 21:36 | NUR ---
SPOKE WITH DR. BLUE: INCREASE RATE TO 18 AND NO FURTHER ABGs FOR TONIGHT. ORDERS READBACK AND VERIFIED
--- NOTE | 2019-10-08 21:40 | NUR ---
PAGED MIXER HELPER HOSPITALIST
--- NOTE | 2019-10-08 21:49 | NUR ---
RR INCREASED TO 18 AT THIS TIME PER DR. BLUE.
[2019-10-08] MEDS ORDERED: FUROSEMIDE 20 MG/2 ML VIAL ONE (22:11)
[2019-10-08] MEDS ORDERED: FUROSEMIDE 20 MG/2 ML VIAL IV ONE (22:15)
--- NOTE | 2019-10-08 22:15 | NUR ---
SPOKE WITH ERIK GILLIS: UPDATED ON PATIENT'S STATUS, AND INTERVENTIONS THUS FAR. ORDERS FOR 20 MG LASIX IVP X1 DOSE. ORDERS READBACK AND VERIFIED
--- NOTE | 2019-10-08 22:50 | NUR ---
SPOKE WITH PATIENT'S SISTER: UPDATED ON PATIENT'S STATUS, MADE AWARE OF RESPIRATORY AND HEMODYNAMICALLY UNSTABLE. OFFERED FAMILY TO COME INTO VISIT PATIENT
[2019-10-08] MEDS ORDERED: EPINEPHrine HCL 250 ML IV ONE (23:10)
--- NOTE | 2019-10-08 23:40 | NUR ---
FAMILY AT BEDSIDE: UPDATED ON PATIENT'S STATUS, AND INTERVENTIONS THUS FAR
[2019-10-09] VITALS: BP 99/53
[2019-10-09] MEDS: ACCU-CHEK COMFORT CURVE STRIP VI SCH (00:04)
[2019-10-09 00:08] VITALS: BP 99/53
[2019-10-09 00:15] VITALS: BP 93/51
--- NOTE | 2019-10-09 00:45 | NUR ---
PAUSES NOTED ON FUNERAL DIRECTOR'S ASSISTANT - STOPPED AMIODARONE GTT
--- NOTE | 2019-10-09 00:50 | NUR ---
LIDOCAINE DRIP STOPPED - UNABLE TO OBTAIN NIBP
--- NOTE | 2019-10-09 00:56 | NUR ---
PAGED PUBLIC RELATIONS MANAGER HOSPITALIST - CELINA'D ON LEVO VASO AND EPI - UNABLE TO OBTAIN BP AT THIS TIME
--- NOTE | 2019-10-09 01:00 | NUR ---
NOTIFIED ERIK GILLIS OF PATIENT'S STATUS: ORDERS FOR DOPAMINE GTT. AND IF NEEDED ROSALINDA GTT. ORDERS READBACK AND VERIFIED
[2019-10-09] MEDS ORDERED: PHENYLEPHRINE INJ 40 MG in SODIUM CHL 0.9% 250 ML IV SCH (01:01)
[2019-10-09] MEDS ORDERED: DOPamine 1600MCG/ML D5W 250 ML IV ONE (01:02)
[2019-10-09] MEDS ORDERED: DOPamine 1600MCG/ML D5W 250 ML IV SCH (01:15)
--- NOTE | 2019-10-09 01:20 | NUR ---
BP READING 55/25 ON DOPAMINE, VASO, LEVO, EPI GTT: JAGJIT, SENIOR MOBILE APPLICATION DEVELOPER AT BEDSIDE ASSISTING
[2019-10-09 01:25] VITALS: BP 55/26
--- NOTE | 2019-10-09 01:25 | NUR ---
ROSALINDA GTT NOW ADDED - ALL OTHER VASOPRESSOR DRIPS MAXED OUT - . ASKED RT TO OBTAIN ABG
--- NOTE | 2019-10-09 01:40 | NUR ---
PAGED ON AIR TALENT HOSPITALIST
--- NOTE | 2019-10-09 02:00 | NUR ---
TOD 0133 - PRONOUNCED BY TEDDY GILLIS ONCOLOGY CONSULTANT
--- NOTE | 2019-10-09 02:52 | NUR ---
RELEASED BY [facility] # [id number]
--- NOTE | 2019-10-09 02:53 | NUR ---
LEFT MESSAGE WITH FITNESS/WELLNESS DIRECTOR - AWAITING RETURN CALL
--- NOTE | 2019-10-09 08:52 | NUR ---
re-assessment Patient Addendum: 10/09/19 at 0852 by Tanesha URIOSTEGUI Amended: Links added.
[2019-10-09] MEDS ORDERED: THIAMINE 100mg/ml INJ (200mg/2ml VIAL) IV SCH (10:00)
[2019-10-09] MEDS ORDERED: FOLIC ACID 1 MG in D5W 5% 50 ML IV SCH (10:00)
--- NOTE | 2019-10-09 15:45 | NUR ---
[employer] HERE TO [employer] DECEDENT AUTHORIZATION FOR RELEASE GIVEN BY PHONE FROM SISTER STEVEN GUSMAN
== END 2019-10-09 05:32 | disposition expired | DRG 870 ==
LOC: EDBD 20:32 → ER 20:34 → TELE 20:35 → ICU WEST 10-06 07:31
PROVIDERS: ADMIT Nurse Practitioner; ATTEND Internal Medicine Nephrology
PROC: 5A1955Z Respiratory Ventilation, Greater than 96 Consecutive Hours (ICD-10-PCS; principal; 2019-10-04)
PROC: 0BH17EZ Insertion of Endotracheal Airway into Trachea, Via Natural or Artificial Opening (ICD-10-PCS; 2019-10-04)
PROC: 06HN33Z Insertion of Infusion Device into Left Femoral Vein, Percutaneous Approach (ICD-10-PCS; 2019-10-04)
DX: A41.9 Sepsis, unspecified organism (principal); J15.0 Pneumonia due to Klebsiella pneumoniae; I21.4 Non-ST elevation (NSTEMI) myocardial infarction; J96.01 Acute respiratory failure with hypoxia; G93.41 Metabolic encephalopathy; N17.0 Acute kidney failure with tubular necrosis; R65.21 Severe sepsis with septic shock; E87.3 Alkalosis; I50.30 Unspecified diastolic (congestive) heart failure; G93.1 Anoxic brain damage, not elsewhere classified; E87.1 Hypo-osmolality and hyponatremia; D68.9 Coagulation defect, unspecified; E87.0 Hyperosmolality and hypernatremia; K81.0 Acute cholecystitis; I48.91 Unspecified atrial fibrillation; K72.90 Hepatic failure, unspecified without coma; D75.1 Secondary polycythemia; E66.9 Obesity, unspecified; G62.9 Polyneuropathy, unspecified; E87.6 Hypokalemia; T36.8X5A Adverse effect of other systemic antibiotics, initial encounter; Y92.89 Other specified places as the place of occurrence of the external cause; E86.9 Volume depletion, unspecified; I11.0 Hypertensive heart disease with heart failure; K70.31 Alcoholic cirrhosis of liver with ascites; Z66 Do not resuscitate; Z79.82 Long term (current) use of aspirin; Z80.0 Family history of malignant neoplasm of digestive organs; Z82.49 Family history of ischemic heart disease and other diseases of the circulatory system; Z83.3 Family history of diabetes mellitus; Z88.1 Allergy status to other antibiotic agents; Z20.828 Contact with and (suspected) exposure to other viral communicable diseases; Z68.30 Body mass index [BMI] 30.0-30.9, adult
CPT/HCPCS: 36415; 36600; 51702; 70450; 71045; 76700; 80048; 80053; 80162; 80202; 80307; 80320; 81001; 82010; 82140; 82550; 82570; 82728; 82805; 82962; 83036; 83605; 83735; 83880; 84100; 84156; 84300; 84439; 84443; 84484; 85007; 85025; 85027; 85379; 85610; 85730; 87040; 87070; 87077; 87081; 87086; 87088; 87186; 87205; 87493; 93005; 93306; 94002; 94003; 96361; 96374; 96375; 99291; C9113; G0378; J0171; J0330; J0610; J1815; J2001; J2185; J2250; J2543; J2704; J3430; J3480; J3490; J7060; P9047